=== PATIENT | male | born 1935 | race Two or more races ===

== ENCOUNTER 2018-06-18 10:19 | Emergency (ER) | payer OTHER ==
[~2018-06-18] VITALS: Ht 172.7 cm; Wt 68.0 kg
[~2018-06-18 10:19] MED LIST: AMBIEN10 MG PO; IBUPROFEN800 MG PO; SEPTRA DS TABLE1 TAB PO
[2018-06-18] MEDS ORDERED: COZAAR100 MG PO (10:57)
[2018-06-18] MEDS ORDERED: GLIPIZIDE5 MG PO (10:58)
[2018-06-18] MEDS ORDERED: [UNRECOGNIZED DRUG - OTHER] (10:58)
[2018-06-18] MEDS ORDERED: SINGULAIR10 MG PO (10:59)
[2018-06-18] MEDS ORDERED: FORTAMET500 MG PO (11:07)
== END 2018-06-18 15:46 | disposition home or self-care (01) ==
LOC: ER 10:19
DX: J06.9 Acute upper respiratory infection, unspecified (principal); J11.1 Influenza due to unidentified influenza virus with other respiratory manifestations

== ENCOUNTER 2019-09-27 11:05 | Emergency (ER) | payer OTHER ==
[~2019-09-27] VITALS: Ht 170.2 cm; Wt 63.5 kg
[~2019-09-27 11:05] MED LIST changes: +COZAAR100 MG PO; +FORTAMET500 MG PO; +GLIPIZIDE5 MG PO; +SINGULAIR10 MG PO; +[UNRECOGNIZED DRUG - OTHER]
[2019-09-27] MEDS ORDERED: SYNTHROID50 MCG PO (11:32)
== END 2019-09-27 14:55 | disposition home or self-care (01) ==
LOC: ER 11:05
DX: R05 Cough (principal)

== ENCOUNTER 2021-03-10 17:37 | Emergency (ER) | payer OTHER ==
[~2021-03-10] VITALS: Ht 172.7 cm; Wt 65.8 kg
[~2021-03-10 17:37] MED LIST changes: +SYNTHROID50 MCG PO
== END 2021-03-10 21:15 | disposition home or self-care (01) ==
LOC: ER 17:37
DX: I16.1 Hypertensive emergency (principal); I10 Essential (primary) hypertension; R53.81 Other malaise; D64.89 Other specified anemias; Z03.818 Encounter for observation for suspected exposure to other biological agents ruled out

== ENCOUNTER 2022-12-26 08:58 | Emergency (ER) | payer OTHER ==
[~2022-12-26] VITALS: Ht 172.7 cm; Wt 69.4 kg
== END 2022-12-26 15:10 | disposition home or self-care (01) ==
LOC: ER 08:58
DX: R42 Dizziness and giddiness (principal); Z91.018 Allergy to other foods; D64.9 Anemia, unspecified

== ENCOUNTER 2023-10-16 09:50 | Emergency (ER) | payer OTHER ==
[~2023-10-16] VITALS: Ht 182.9 cm; Wt 66.2 kg
[2023-10-16] MEDS ORDERED: GLUMETZA1000 MG (10:02)
[2023-10-16 10:48] LABS: HEMATOCRIT 27.1 % (39.0-48.0); HEMOGLOBIN 9.4 g/dL (13-16.00); MEAN CELL VOLUME 100.8 fL (80.0-100.00); MEAN CORPUSCULAR HEMOGLOBIN 34.9 pg (27.00-32.0); MEAN CORPUSCULAR HGB CONC 34.6 g/dl (32.0-36.0); PLATELET COUNT 187 K/uL (150-450); RED BLOOD COUNT 2.69 M/uL (4.00-6.00); RED CELL DISTRIBUTION WIDTH 14.9 % (11.5-14.5)
== END 2023-10-16 15:47 | disposition home or self-care (01) ==
LOC: ER 09:50
PROVIDERS: Emergency Medicine
DX: D64.9 Anemia, unspecified (principal); Z91.018 Allergy to other foods; J45.909 Unspecified asthma, uncomplicated; I10 Essential (primary) hypertension; E11.9 Type 2 diabetes mellitus without complications; Z79.84 Long term (current) use of oral hypoglycemic drugs

== ENCOUNTER 2024-10-25 16:46 | Inpatient (IN) | payer OTHER ==
[~2024-10-25] VITALS: Ht 172.7 cm; Wt 68.0 kg
[~2024-10-25 16:46] MED LIST changes: +GLUMETZA1000 MG
[2024-10-25] MEDS ORDERED: FAMOTIDINE/PF 20 MG/2 ML VIAL IV ONE (17:30)
[2024-10-25] MEDS ORDERED: 0.9 % SODIUM CHLORIDE 1,000 ML IV ONE (17:30)
[2024-10-25] MEDS ORDERED: BENZONATATE 200 MG CAPSULE PO ONE (17:30)
[2024-10-25 22:19] LABS: HEMATOCRIT 29.6 % (39.0-48.0); HEMOGLOBIN 9.9 g/dL (13-16.00); MEAN CELL VOLUME 92.6 fL (80.0-100.00); MEAN CORPUSCULAR HEMOGLOBIN 30.8 pg (27.00-32.0); MEAN CORPUSCULAR HGB CONC 33.2 g/dl (32.0-36.0); PLATELET COUNT 275 K/uL (150-450); RED CELL DISTRIBUTION WIDTH 18.9 % (11.5-14.5)
[2024-10-25] MEDS ORDERED: FAMOTIDINE/PF 20 MG/2 ML VIAL ONE (22:27)
[2024-10-25 22:37] LABS: ALBUMIN 2.9 gm/dL (3.4-5.0); BILIRUBIN TOTAL 0.35 mg/dL (0.3-1.2); CALCIUM 8.6 mg/dL (8.5-10.1); CREATININE SERUM 1.21 mg/dL (0.70-1.30); GFR 56.72; GLOBULINA 4.2 G/DL (2.4-3.5); POTASSIUM 4.63 mEq/L (3.5-5.1); TOTAL PROTEIN 7.1 gm/dL (6.4-8.2)
[2024-10-25 22:38] LABS: PH,URINE 6.5 (5.0-8.0); URINE APPEARANCE Clear; URINE BILIRRUBIN Negative (NEGATIVE); URINE BLOOD Negative; URINE COLOR Yellow; URINE GLUCOSE Negative (NEGATIVE); URINE KETONE Negative (NEGATIVE); URINE LEUKOCYTE Negative; URINE NITRATE Negative; URINE PROTEIN Negative (NEGATIVE); URINE UROBILINOGEN 0.2 E.U./dl
[2024-10-25 22:42] LABS: URINE BACTERIA 26.9 uL (0.0-1933); URINE RBC 4.7 uL (0.0-20.8); URINE WBC 1.8 uL (0.0-23.2)
[2024-10-25 22:44] LABS: URINE EPITHELIAL CELLS 0.4 uL (0.0-38.8)
[2024-10-26] MEDS ORDERED: LEVALBUTEROL HCL 1.25 MG/3 ML SOLUTION IH SCH ×2 (00:05→09:00)
[2024-10-26] MEDS ORDERED: PIPERACILLIN/TAZOBACTAM SODIUM 3.375 GM in DEXTROSE 5 % IN WATER 100 ML IV SCH (00:07)
[2024-10-26] MEDS ORDERED: CLONAZEPAM 1 MG TABLET PO SCH (00:09)
[2024-10-26] MEDS ORDERED: 0.9 % SODIUM CHLORIDE 1,000 ML IV SCH (00:15)
[2024-10-26] MEDS ORDERED: ACETAMINOPHEN 500 MG GEL..CAP PO PRN (00:15)
[2024-10-26] MEDS ORDERED: METHYLPREDNISOLONE SOD SUCC 125 MG VIAL IV ONE (00:15)
[2024-10-26] MEDS ORDERED: IPRATROPIUM BROMIDE 0.5 MG/2.5 ML AMPUL.NEB IH SCH (01:00)
[2024-10-26] MEDS ORDERED: GUAIFENESIN/DEXTROMETHORPHAN 10ML BLIST.PACK PO SCH (02:00)
[2024-10-26] MEDS ORDERED: INSULIN LISPRO 1,000 UNIT/10 ML UNITS SUBCUTANEO PRN (05:45)
[2024-10-26] MEDS ORDERED: DEXTROSE 50 % IN WATER 0.5 G/ML DISP.SYRIN IV PRN (05:45)
[2024-10-26 06:10] VITALS: BP 146/75; O2SAT 97
[2024-10-26 06:11] LABS: INR 1.1; PARTIAL THROMBOPLASTIN TIME 27.3 SECONDS (22.0-34.0); PROTHROMBIN TIME 11.9 SECONDS (9.0-11.5)
[2024-10-26 08:31] VITALS: BP 164/79; O2SAT 95
[2024-10-26] MEDS ORDERED: ENOXAPARIN SODIUM 40 MG/0.4 ML SYRINGE SUBCUTANEO SCH (09:00)
[2024-10-26] MEDS ORDERED: LOSARTAN POTASSIUM 100 MG TABLET PO SCH (09:00)
[2024-10-26] MEDS ORDERED: FAMOTIDINE/PF 20 MG in 0.9 % SODIUM CHLORIDE 8 ML IV PUSH SCH (09:00)
[2024-10-26] MEDS ORDERED: METHYLPREDNISOLONE SOD SUCC 40 MG VIAL IV SCH (12:00)
[2024-10-26 16:04] VITALS: BP 152/93; O2SAT 97
[2024-10-26] MEDS ORDERED: ZOLPIDEM TARTRATE 10 MG TABLET PO SCH (21:00)
[2024-10-27 00:14] VITALS: BP 149/75; O2SAT 100
[2024-10-27 08:17] LABS: MEAN CELL VOLUME 94.6 fL (80.0-100.00); MEAN CORPUSCULAR HEMOGLOBIN 30.7 pg (27.00-32.0); MEAN CORPUSCULAR HGB CONC 32.4 g/dl (32.0-36.0); PLATELET COUNT 262 K/uL (150-450); RED BLOOD COUNT 2.86 M/uL (4.00-6.00); RED CELL DISTRIBUTION WIDTH 18.5 % (11.5-14.5)
[2024-10-27 08:21] LABS: CALCIUM 8.3 mg/dL (8.5-10.1); CREATININE SERUM 1.37 mg/dL (0.70-1.30); GFR 49.15; HEMOGLOBIN 8.8 g/dL (13-16.00); POTASSIUM 4.74 mEq/L (3.5-5.1)
[2024-10-27] MEDS ORDERED: DOXYCYCLINE HYCLATE 100 MG CAPSULE PO SCH (09:00)
[2024-10-27] MEDS ORDERED: HYDROCHLOROTHIAZIDE 12.5 MG CAPSULE PO SCH (09:00)
[2024-10-27] MEDS ORDERED: AMLODIPINE BESYLATE 5 MG TABLET PO SCH (09:00)
[2024-10-27] MEDS ORDERED: CEFTRIAXONE SODIUM 2,000 MG VIAL IV SCH (09:00)
[2024-10-27] MEDS ORDERED: INSULIN LISPRO 1,000 UNIT/10 ML UNITS SUBCUTANEO SCH (11:00)
[2024-10-27 17:15] VITALS: BP 195/93; O2SAT 93
[2024-10-27] MEDS ORDERED: INSULIN GLARGINE,HUM.REC.ANLOG 1,000 UNITS/10 ML UNITS SUBCUTANEO SCH (21:00)
[2024-10-28 02:53] VITALS: O2SAT 95
[2024-10-28 09:26] VITALS: BP 157/86
[2024-10-28 11:06] LABS: HEMATOCRIT 32.9 % (39.0-48.0); HEMOGLOBIN 10.5 g/dL (13-16.00); MEAN CELL VOLUME 94.7 fL (80.0-100.00); MEAN CORPUSCULAR HEMOGLOBIN 30.2 pg (27.00-32.0); MEAN CORPUSCULAR HGB CONC 31.8 g/dl (32.0-36.0); PLATELET COUNT 269 K/uL (150-450); RED BLOOD COUNT 3.47 M/uL (4.00-6.00); RED CELL DISTRIBUTION WIDTH 18.6 % (11.5-14.5)
== END 2024-10-29 11:11 | disposition home or self-care (01) | DRG 195 ==
LOC: ER 16:46 → MEDI 10-26 00:10 → MEDJ 10-26 00:10 → MEDI 10-26 01:38 → MEDJ 10-27 06:49 → MEDI 10-27 09:03 → MEDJ 10-29 11:11
PROVIDERS: General Practice; Internal Medicine; Student in an Organized Health Care Education/Training Program; ADMIT Internal Medicine; ATTEND Internal Medicine
PROC: BW21ZZZ Computerized Tomography (CT Scan) of Abdomen and Pelvis (ICD-10-PCS; 2024-10-25)
PROC: BB24ZZZ Computerized Tomography (CT Scan) of Bilateral Lungs (ICD-10-PCS; 2024-10-25)
PROC: 3E0F7GC Introduction of Other Therapeutic Substance into Respiratory Tract, Via Natural or Artificial Opening (ICD-10-PCS; 2024-10-26)
PROC: 8E0ZXY6 Isolation (ICD-10-PCS; principal; 2024-10-27)
DX: J15.7 Pneumonia due to Mycoplasma pneumoniae (principal); K52.9 Noninfective gastroenteritis and colitis, unspecified; J06.9 Acute upper respiratory infection, unspecified; J45.909 Unspecified asthma, uncomplicated; J20.9 Acute bronchitis, unspecified; E11.65 Type 2 diabetes mellitus with hyperglycemia; D64.9 Anemia, unspecified; I10 Essential (primary) hypertension; Z79.84 Long term (current) use of oral hypoglycemic drugs